=== PATIENT | female | born 1995 | race Caucasian/White ===

== ENCOUNTER 2020-04-27 17:37 | Inpatient (IN) | payer OTHER ==
[~2020-04-27] VITALS: Ht 160 cm; Wt 68.0 kg
[2020-04-28] MEDS ORDERED: PRENATAL TABLE1 EAC3 PO (16:02)
== END 2020-04-30 13:09 | DRG 833 ==
LOC: OBS/DEL 17:37 → OB/GYN 04-28 15:02 → LDR 04-28 15:02 → OB/GYN 04-28 18:46
PROVIDERS: ADMIT Obstetrics & Gynecology Obstetrics; ATTEND Obstetrics & Gynecology Obstetrics
PROC: 4A0HXFZ Measurement of Products of Conception, Cardiac Rhythm, External Approach (ICD-10-PCS; principal; 2020-04-28)
DX: O23.43 Unspecified infection of urinary tract in pregnancy, third trimester (principal); Z3A.32 32 weeks gestation of pregnancy

== ENCOUNTER 2020-05-25 15:04 | Inpatient (IN) | payer OTHER ==
[~2020-05-25] VITALS: Ht 160 cm; Wt 68.0 kg
[~2020-05-25 15:04] MED LIST: PRENATAL TABLE1 EAC3 PO
== END 2020-06-09 11:53 | DRG 807 ==
LOC: LDR 06-07 00:36 → OB/GYN 06-07 02:42
PROVIDERS: ADMIT Obstetrics & Gynecology Obstetrics; ATTEND Obstetrics & Gynecology Obstetrics
PROC: 10E0XZZ Delivery of Products of Conception, External Approach (ICD-10-PCS; principal; 2020-06-07)
PROC: 4A1HXCZ Monitoring of Products of Conception, Cardiac Rate, External Approach (ICD-10-PCS; 2020-06-07)
DX: O80 Encounter for full-term uncomplicated delivery (principal); Z37.0 Single live birth; Z3A.38 38 weeks gestation of pregnancy; Z20.828 Contact with and (suspected) exposure to other viral communicable diseases